=== PATIENT | female | born 1995 | race American Indian/Alaskan Native ===

== ENCOUNTER 2017-06-19 12:46 | Emergency (ER) | payer MEDICAID, OTHER ==
[2017-06-19 14:17] VITALS: BP 127/89
--- NOTE | 2017-06-19 14:19 | EDM.PDOC ---
ED HPI GENERAL MEDICAL PROBLEM - General Chief Complaint: ENT Problem Stated Complaint: SORE THROAT Time Seen by Provider: 06/19/17 14:18 Source of Information: Reports: Patient, RN, RN Notes Reviewed History Limitations: Reports: No Limitations - History of Present Illness INITIAL COMMENTS - FREE TEXT/NARRATIVE: C/O four days duration of sore throat with fevers and chills. Pt developed a bloody nose this morning, but it stopped spontaneously. Denies cough, abd. pain , N/V, or rash. Admits to mild frontal headache on/off. 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 Head Pain Score (Numeric/FACES): 8 - Related Data Allergies Allergy/AdvReac Type Severity Reaction Status Date / Time No Known Allergies Allergy Verified 06/19/17 14:17 Home Meds: Home Meds Ibuprofen [Advil] 400 mg PO ASDIRECTED PRN 06/19/17 [History] Past Medical History Respiratory History: Reports: 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: Psychiatric History: Reports: Anxiety Endocrine/Metabolic History: Reports: Obesity/BMI 30+ Hematologic History: Reports: Anemia - Infectious Disease History Infectious Disease History: Reports: Chicken Pox Social & Family History - Family History Family Medical History: Noncontributory - Tobacco Use Smoking Status *Q: Current Some Day Smoker Years of Tobacco use: 6 Packs/Tins Daily: 0.1 Used Tobacco, but Quit: No Month Tobacco Last Used: december Second Hand Smoke Exposure: Yes - Caffeine Use Caffeine Use: Reports: Soda - Alcohol Use Days Per Week of Alcohol Use: 1 Number of Drinks Per Day: 10 Total Drinks Per Week: 10 - Recreational Drug Use Recreational Drug Use: Yes Drug Use in Last 12 Months: Yes Recreational Drug Type: Reports: Marijuana/Hashish Recreational Drug Use Frequency: Not Used In Over 6 Months - Living Situation & Occupation Living situation: Reports: with Family ED ROS ENT - Review of Systems Review Of Systems: ROS reveals no pertinent complaints other than HPI. ED EXAM, ENT - Physical Exam Exam: See Below Exam Limited By: No Limitations General Appearance: Alert, WD/WN, No Apparent Distress, Obese Eye Exam: Bilateral Eye: Normal Inspection Ears: Normal External Exam, Normal Canal, Hearing Grossly Normal, Normal TMs Nose: Dried Blood (left nare). No: Nasal Discharge Mouth/Throat: Normal Gums, Normal Lips, Normal Teeth, Pharyngeal Erythema, Tonsillar Erythema, Tonsillar Exudates, Tonsillar Swelling (L>R with possible early left peritonsillar abscess). No: Muffled Voice Head: Atraumatic, Normocephalic Neck: Other (shoddy cervical lymphadenopathy, no nuchal rigidity) Respiratory/Chest: No Respiratory Distress, Lungs Clear, Normal Breath Sounds, No Accessory Muscle Use, Chest Non-Tender Cardiovascular: Regular Rate, Rhythm, No Murmur, Tachycardia GI/Abdominal: Normal Bowel Sounds, Soft, Non-Tender, No Distention, Other ( benign obese abdomen). No: Guarding, Rigid, Rebound (Female) Exam: Deferred Rectal (Female) Exam: Deferred Back: Normal Inspection Extremities: Normal Inspection Neurological: Alert, Oriented, CN II-XII Intact, Normal Cognition, Normal Gait, No Motor/Sensory Deficits Psychiatric: Normal Affect, Normal Mood Skin: Warm, Dry, Intact, Normal Color, No Rash Course - Vital Signs Last Recorded V/S: Last Vital Signs Temp 37.7 C 06/19/17 14:11 Pulse 123 H 06/19/17 14:11 Resp 16 06/19/17 14:11 BP 127/89 06/19/17 14:11 Pulse Ox 100 06/19/17 14:11 - Orders/Labs/Meds Orders: Active Orders 24 hr Category Date Time Status Peripheral IV Care [RC] . DIRECTED Care 06/19/17 14:40 Active Peripheral IV Insertion Adult [OM.PC] Stat Oth 06/19/17 14:35 Ordered Labs: Laboratory Tests 06/19/17 06/19/17 06/19/17 Range/Units 14:57 14:57 14:57 WBC 24.8 H (5.0-10.0) 10^3/uL RBC 4.65 (4.2-5.4) 10^6/uL Hgb 10.0 L (12.0-16.0) g/dL Hct 31.9 L (37.0-47.0) % MCV 68.6 L D (80-100) fL MCH 21.5 L (27.0-34.0) pg MCHC 31.3 L (33.0-35.0) g/dL Plt Count 555 H D (150-450) 10^3/uL Neut % (Auto) 86.3 H (42.2-75.2) % Lymph % (Auto) 6.9 L (20.5-50.1) % [place] % (Auto) 6.3 (2-8) % Eos % (Auto) 0.3 L (1.0-3.0) % Baso % (Auto) 0.2 (0.0-1.0) % Sodium 135 (135-145) mmol/L Potassium 4.0 (3.6-5.0) mmol/L Chloride 99 L (101-111) mmol/L Carbon Dioxide 25.0 (21.0-31.0) mmol/L Anion Gap 15.0 BUN 8 (7-18) mg/dL Creatinine 0.5 L (0.6-1.3) mg/dL Est Cr Clr Drug Dosing 163.82 mL/min Estimated GFR (MDRD) > 60 BUN/Creatinine Ratio 16.00 Glucose 115 H (74-105) mg/dL Calcium 8.8 (8.4-10.2) mg/dl Total Bilirubin 0.6 (0.2-1.0) mg/dL AST 31 (10-42) IU/L ALT 53 (10-60) IU/L Alkaline Phosphatase 131 H (42-121) IU/L C-Reactive Protein > 20.0 H (0.0-1.3) mg/dL Total Protein 8.6 H (6.7-8.2) g/dl Albumin 3.6 (3.2-5.5) g/dl Globulin 5.0 Albumin/Globulin Ratio 0.72 Meds: Medications Discontinued Medications Generic Name Dose Route Start Last Admin Trade Name Freq PRN Reason Stop Dose Admin Al Hydroxide/Mg Hydroxide 30 ml 06/19/17 14:40 06/19/17 14:48 Gi Cocktail PO 06/19/17 14:41 30 ml ONETIME ONE Administration Ceftriaxone Sodium 2 gm 06/19/17 14:43 06/19/17 15:54 Rocephin IVPUSH 06/19/17 14:44 Not Given ONETIME ONE Ceftriaxone Sodium 1 gm 06/19/17 14:48 06/19/17 15:09 Rocephin IVPUSH 06/19/17 14:49 1 gm ONETIME ONE Administration Ceftriaxone Sodium 1 gm 06/19/17 14:49 06/19/17 15:11 Rocephin IVPUSH 06/19/17 14:50 1 gm ONETIME ONE Administration Dexamethasone 20 mg 06/19/17 14:40 06/19/17 14:53 Dexamethasone IVPUSH 06/19/17 14:41 20 mg ONETIME ONE Administration Sodium Chloride 1,000 mls @ 999 mls/hr 06/19/17 14:40 06/19/17 14:52 Normal Saline IV 06/19/17 15:40 999 mls/hr .BOLUS ONE Administration Sodium Chloride 10 ml 06/19/17 14:40 06/19/17 14:48 Saline Flush FLUSH 10 ml ASDIRECTED PRN Administration Keep Vein Open - Re-Assessments/Exams Free Text/Narrative Re-Assessment/Exam: Pt reports feeling much improved following tx in ER. Departure - Departure Time of Disposition: 15:52 Disposition: Home, Self-Care 01 Condition: Good Clinical Impression: Tonsillitis, Strep pharyngitis - Discharge Information Instructions: Strep Throat, Tonsillitis Forms: ED Department Discharge Additional Instructions: Rx: Zithromax 500mg Rx: Prednisone 20mg Frequent saltwater gargles until improved. Follow up in clinic in 2 days if not improved. - My Orders Last 24 Hours: My Active Orders 06/19/17 14:35 Peripheral IV Insertion Adult [OM.PC] Stat 06/19/17 14:40 Peripheral IV Care [RC] . DIRECTED - Assessment/Plan Last 24 Hours: My Active Orders 06/19/17 14:35 Peripheral IV Insertion Adult [OM.PC] Stat 06/19/17 14:40 Peripheral IV Care [RC] . DIRECTED
[2017-06-19] MEDS ORDERED: Sodium Chloride 0.9% 10 ML Syringe FLUSH PRN (14:40)
[2017-06-19] MEDS ORDERED: Dexamethasone 4 MG/ML SDV IVPUSH ONE (14:40)
[2017-06-19] MEDS ORDERED: Sodium Chloride 0.9% 1,000 ML IV ONE (14:40)
[2017-06-19] MEDS ORDERED: GI Cocktail Oral Solution 30 ML PO ONE (14:40)
[2017-06-19] MEDS ORDERED: cefTRIAXone 2 GM Vial IVPUSH ONE (14:43)
[2017-06-19] MEDS ORDERED: cefTRIAXone 1 GM Vial IVPUSH ONE ×2 (14:48→14:49)
[2017-06-19 15:26] LABS: CHLORIDE,CL 99 mmol/L (101-111); SODIUM,NA 135 mmol/L (135-145)
== END 2017-06-19 16:05 | disposition home or self-care (01) ==
LOC: DL.ED 12:46
DX: J03.90 Acute tonsillitis, unspecified (principal); F17.210 Nicotine dependence, cigarettes, uncomplicated
CPT/HCPCS: 36415; 80053; 85025; 86140; 87430; 96361; 96374; 96375; 99283; A9270; J0696; J1100; J7030; J7050

== ENCOUNTER 2017-12-16 20:15 | Emergency (ER) | payer OTHER ==
[2017-12-16 20:46] VITALS: BP 141/66
[2017-12-16] MEDS ORDERED: Cephalexin 500 MG Cap PO ONE (21:33)
--- NOTE | 2017-12-16 21:38 | EDM.PDOC ---
ED HPI GENERAL MEDICAL PROBLEM - General Chief Complaint: ENT Problem Stated Complaint: ALERGIC REACTION [id number] Time Seen by Provider: 12/16/17 21:25 Source of Information: Reports: Patient History Limitations: Reports: No Limitations - History of Present Illness INITIAL COMMENTS - FREE TEXT/NARRATIVE: This 21 yo female patient reports to the ED with a 2 day history of a sore throat and difficulties swallowing due to swelling in the back of her throat. Onset Date: 12/14/17 Duration: Constant Location: Reports: Neck Quality: Reports: Ache, Dull Severity: Moderate Improves with: Reports: None Worsens with: Reports: None Associated Symptoms: Reports: No Other Symptoms Throat Pain Score (Numeric/FACES): 6 - Related Data Allergies Allergy/AdvReac Type Severity Reaction Status Date / Time No Known Allergies Allergy Verified 12/16/17 20:53 Home Meds: Home Meds Ibuprofen [Advil] 400 mg PO ASDIRECTED PRN 06/19/17 [History] Past Medical History HEENT History: Reports: None Cardiovascular History: Reports: None Respiratory History: Reports: Asthma Gastrointestinal History: Reports: None Genitourinary History: Reports: None 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 History: Reports: None Neurological History: Reports: None Psychiatric History: Reports: Anxiety Endocrine/Metabolic History: Reports: Obesity/BMI 30+ Hematologic History: Reports: Anemia Immunologic History: Reports: None Oncologic (Cancer) History: Reports: None Dermatologic History: Reports: None - Infectious Disease History Infectious Disease History: Reports: Chicken Pox - Past Surgical History Head Surgeries/Procedures: Reports: None Social & Family History - Family History Family Medical History: Noncontributory - Tobacco Use Smoking Status *Q: Current Some Day Smoker Years of Tobacco use: 9 Packs/Tins Daily: 0.1 - Caffeine Use Caffeine Use: Reports: Tea - Recreational Drug Use Recreational Drug Use: No - Living Situation & Occupation Living situation: Reports: with Family ED ROS ENT - Review of Systems Review Of Systems: ROS reveals no pertinent complaints other than HPI. ED EXAM, ENT - Physical Exam Exam: See Below Exam Limited By: No Limitations General Appearance: Alert, WD/WN, Moderate Distress Eye Exam: Bilateral Eye: EOMI, Normal Inspection, PERRL Ears: Normal External Exam, Normal Canal, Hearing Grossly Normal, Normal TMs Nose: Normal Inspection, Normal Mucousa, No Blood Mouth/Throat: Tonsillar Erythema, Tonsillar Swelling Head: Atraumatic, Normocephalic Neck: Lymphadenopathy (L), Lymphadenopathy (R) Respiratory/Chest: No Respiratory Distress, Lungs Clear, Normal Breath Sounds, No Accessory Muscle Use, Chest Non-Tender Cardiovascular: Normal Peripheral Pulses, Regular Rate, Rhythm, No Edema, No Gallop, No JVD, No Murmur, No Rub GI/Abdominal: Normal Bowel Sounds, Soft, Non-Tender, No Organomegaly, No Distention, No Abnormal Bruit, No Mass (Female) Exam: Deferred Rectal (Female) Exam: Deferred Back: Normal Inspection, Full Range of Motion Extremities: Normal Inspection, Normal Range of Motion, Non-Tender, No Pedal Edema, Normal Capillary Refill Neurological: Alert, Oriented, CN II-XII Intact, Normal Cognition, Normal Gait, Normal Reflexes, No Motor/Sensory Deficits Psychiatric: Normal Affect, Normal Mood Skin: Warm, Dry, Intact, Normal Color, No Rash Lymphatic: No Adenopathy Course - Vital Signs Last Recorded V/S: Last Vital Signs Temp 37.0 C 12/16/17 20:45 Pulse 105 H 12/16/17 20:45 Resp 18 12/16/17 20:45 BP 141/66 H 12/16/17 20:45 Pulse Ox 97 12/16/17 20:45 - Orders/Labs/Meds Orders: Active Orders 24 hr Category Date Time Status CULTURE STREP A CONFIRMATION [] Stat Lab 12/16/17 20:49 Results STREP SCRN A RAPID W CULT CONF [] Stat Lab 12/16/17 20:49 Results Meds: Medications Discontinued Medications Generic Name Dose Route Start Last Admin Trade Name Janet PRN Reason Stop Dose Admin Cephalexin 500 mg 12/16/17 21:33 Keflex PO 12/16/17 21:34 ONETIME ONE Departure - Departure Time of Disposition: 21:36 Disposition: Home, Self-Care 01 Condition: Fair Clinical Impression: Acute bacterial tonsillitis - Discharge Information *PRESCRIPTION DRUG MONITORING PROGRAM REVIEWED*: Not Applicable *COPY OF PRESCRIPTION DRUG MONITORING REPORT IN PATIENT MOJGAN: Not Applicable Instructions: Tonsillitis, [id number] Forms: ED Department Discharge Care Plan Goals: The patient was advised of the examination and lab results. The patient was given an oral dose of Keflex (500 mg) while in the ED. The patient was discharged with Keflex (500 mg) #1 to take in the morning and a script for Keflex (500 mg) #14 to take 1 by mouth 2 times per day for 7 days. If the patient has any additional symptoms or concerns, the patient should follow-up with her primary care facility or return to the emergency department. - My Orders Last 24 Hours: My Active Orders 12/16/17 20:49 CULTURE STREP A CONFIRMATION [RM] Stat STREP SCRN A RAPID W CULT CONF [RM] Stat - Assessment/Plan Last 24 Hours: My Active Orders 12/16/17 20:49 CULTURE STREP A CONFIRMATION [RM] Stat STREP SCRN A RAPID W CULT CONF [RM] Stat
[2017-12-16] MEDS ORDERED: Cephalexin 500 MG Cap ONE (21:43)
== END 2017-12-16 21:45 | disposition home or self-care (01) ==
LOC: DL.ED 20:15
DX: J03.80 Acute tonsillitis due to other specified organisms (principal); B96.89 Other specified bacterial agents as the cause of diseases classified elsewhere; F17.210 Nicotine dependence, cigarettes, uncomplicated
CPT/HCPCS: 87081; 87430; 99283; A9270

== ENCOUNTER 2019-10-28 16:55 | Observation (INO) | payer OTHER, MEDICAID ==
[2019-10-28] MEDS ORDERED: Lactated Ringers 1,000 ML IV SCH (17:30)
[2019-10-28] MEDS ORDERED: Acetaminophen 325 MG Tab PO PRN (19:09)
[2019-10-28] MEDS ORDERED: Tranexamic Acid 1,000 MG in Sodium Chloride 0.9% 100 ML IV PRN (19:09)
--- NOTE | 2019-10-28 19:26 | US ---
PROCEDURE INFORMATION: Exam: US After First Trimester, Transabdominal Exam date and time: 10/28/2019 5:55 PM Age: 23 years old Clinical indication: Lmp or gestational age (in weeks): [id number] twin a, twin b 33wks; Antepartum complications; Other: Fatigue, no care; TECHNIQUE: Imaging protocol: Real-time transabdominal obstetrical ultrasound of the maternal pelvis and a second or third trimester with image documentation. COMPARISON: No relevant prior studies available. FINDINGS: Gestation: Diamniotic dichorionic twin intrauterine gestation. Heart rate: 146 bpm. Presentation: Cephalic. Placenta: Unremarkable. No subchorionic bleed. Placenta is anterior and posterior. Amniotic fluid: Amniotic fluid is normal for gestational age. Index of 17 cm. BIOMETRY: Estimated gestational age: 33 weeks 3 days Estimated due date: December 13, 2019 Estimated weight: 2141 g Biparietal diameter: 8.34 cm Head circumference: 29.8 cm IMPRESSION: 1. Diamniotic dichorionic twin gestation. 2. Estimated gestational age 33 weeks 3 days based on ultrasound. 3. Estimated weight 2141 g. PROCEDURE INFORMATION: Exam: US After First Trimester, Transabdominal. Additional Gestation Exam date and time: 10/28/2019 5:55 PM Age: 23 years old Clinical indication: Lmp or gestational age (in weeks): [id number] twin a, twin b 33wks; Antepartum complications; Other: Fatigue, no care; TECHNIQUE: Imaging protocol: Real-time transabdominal obstetrical ultrasound of the maternal pelvis and a second or third trimester with image documentation. Additional Gestation was evaluated. COMPARISON: No relevant prior studies available. FINDINGS: Gestation: Twin intrauterine gestation. Heart rate: 143 bpm. Presentation: Transverse Placenta: Unremarkable. No subchorionic bleed. Placenta is anterior and posterior. Amniotic fluid: Amniotic fluid is normal for gestational age. Index of 17 cm. BIOMETRY: Estimated gestational age: 33 weeks Estimated due date: December 16, 2019 Estimated weight: 2085 g Biparietal diameter: 8.17 cm Head circumference: 30.3 cm IMPRESSION: 1. Diagram knee on a dichorionic twin gestation. 2. Estimated gestational age 33 weeks. 3. 2085 g. 4. Estimated date of delivery based on ultrasound December 16, 2019.
--- NOTE | 2019-10-28 21:57 | HP ---
PATIENT IDENTIFICATION: Nadia Man is a 23-year-old G3, P2-0-0-2 intrauterine , diagnosed after initial evaluation with twin diamniotic dichorionic suspected intrauterine at 33+ weeks, presenting with swelling. HISTORY OF PRESENT ILLNESS: The patient states over the last 3 days, she has noticed increased swelling in her face, hands, and feet associated with occasional headaches, but nothing severe in nature and only visual changes when rising out of bed that resolved pretty quickly and notes that she had issues with blood pressure with the previous . She notes no contractions, spotting, bleeding, or leaking, and has had no care. Records were called for, reviewed as below, and supplemented by patient history. OB HISTORY: First , spontaneous vaginal delivery, viable male infant, weighing 8 pounds 7 ounces with uterine atony noted after delivery with having to use Methergine to help the uterus firm up and for her bleeding to subside. 08/27/2018, had a male delivered at 39-3/7 weeks with preeclampsia without severe features with limited/insufficient care. Underwent Cytotec x2 as well as Pitocin artificial rupture of membranes, NST. That baby had scores of 8 and 8, weighing 8 pounds 8 ounces (3855 g). Positive THC on urine drug screen was noted as well and she had anemia acute blood loss with hemoglobin dropping down to 8.4 upon discharge. Antepartum labs are pending. ALLERGIES: None. MEDICATION: vitamins. PAST MEDICAL/PAST SURGICAL HISTORY: Remarkable for asthma with last use of albuterol when she was like 7 to 8 years of age. PAST SURGICAL HISTORY: Negative. FAMILY HISTORY: Maternal grandmother and mother have diabetes mellitus and heart disease. No family history of anesthesia, bleeding problems elicited. SOCIAL HISTORY: Lives in [facility] with Don [place] (father of baby) and their 2 children together. The patient states she smokes 2 or 3 cigarettes per day. No alcohol or drug use. REVIEW OF SYSTEMS: Notable for having some diarrhea and vomiting earlier this morning that has resolved. Nobody else sick in the household. Otherwise, review of systems fully reviewed and felt to be noncontributory. OBJECTIVE: Vital Signs: Initial blood pressure 131/70, recheck 160/74, then 150/73, followed by 138/65, respiratory rate is 18, heart rates between 73 and 80. The patient feels afebrile. Appearance: Female appears stated age, acting appropriate. Nontoxic appearance. Somewhat nervous and tearful after discussing twins. HEENT: Head is atraumatic. EOMs intact. PERRLA. No scleral icterus. No sore throat. Mucous membranes dry and tacky. Neck: No obvious masses or tenderness. Lungs: Clear to auscultation bilaterally. No increased work of breathing. Heart: S1, S2. Regular rate and rhythm. Abdomen: Firm, gravid. Gareth's indeterminate. Nontender, nondistended. Bowel sounds positive. No organomegaly, pulsatile masses, or obvious hernias. No rebound, rigidity, or guarding. : Exam done through med student. Speculum exam done. GC, chlamydia, wet prep obtained. Group B strep was obtained as well and vaginal exam with med student and nurse reveals her to be 1 cm, very high, posterior, and thick. These exams were done after ultrasound was done. Ultrasound done reviewed with [facility] revealed twin intrauterine with suspected diamniotic dichorionic with estimated weight of twin A 2141 g and twin B being 2085 g with twin A being in cephalic presentation, twin B being more in a transverse type fashion. Anterior and posterior placenta noted. Extremities: No peripheral edema. Excoriations noted on the lower legs and arms. Deep tendon reflexes 2 to 3 out of 4 bilaterally and symmetric in extremities. Psychiatric: Mood and affect congruent. Judgment intact. Skin: Without any cyanosis, clubbing, or jaundice. 1+ pitting edema to mid tibia bilaterally. No calf pain. FURTHER INVESTIGATIONS: White cell count 10.1, hemoglobin 6.8, platelets 297. PIH panel remarkable for normal BUN, creatinine, uric acid, AST, and ALT, as well as LDH with a urine protein creatinine ratio putting at 450.7, which would coincide with 450.7 mg per 24-hour period. Urine drug screen positive for methamphetamine. COVID is negative. Pending are HIV, gonorrhea, chlamydia, rubella, as well as no care. Order set of labs. NSTs were found to be reactive and reassuring with heart tone baselines around the 130s to 140s range. ASSESSMENT: 1. Twin intrauterine , suspect diamniotic, dichorionic at 33+ weeks. 2. Preeclampsia without severe features. Suspected based on blood pressures and urinalysis finding as above. Recent blood pressure was 136/59 with a heart rate 84. 3. No care. 4. Bilateral swelling. 5. History of vomiting and diarrhea earlier this morning, now resolved. 6. Positive methamphetamine on urine drug screen, 10/28/2019. 7. G3, P2-0-0-2. 8. History of preeclampsia with previous . 9. Anemia of , severe, with hemoglobin of 6.8. We will proceed with blood transfusion of 2 units. I did discuss with the patient risks, benefits, alternatives, and complications of this and received verbal and written consent in regard to this. PLAN: The patient will be admitted to observation. Did discuss with her keeping her at least 24 hours to get her urine protein determined, follow her blood pressures closely, as well as for signs and symptoms of severe preeclampsia, serial labs, and monitoring heart tones intermittently with NSTs. The patient understands and agrees to above treatment plan. We will continue to follow clinically and closely. In addition, we will repeat CBC at 7 o'clock in the morning followed by other labs for severe preeclampsia features and follow clinically and closely. The patient understands and agrees to above treatment plan. [facility] /[id number] ELIA
--- NOTE | 2019-10-28 22:59 | OBOUT ---
DATE: 10/28/2019 Twin B NST. TIME: 1905 to 1920. REASON FOR NST: 1. Intrauterine , twins, 33+ weeks, diamniotic, dichorionic suspected. 2. Preeclampsia with severe features. 3. No care. 4. Positive methamphetamine on urine drug screen, 10/28/2019. 5. Intrauterine , severe. Hemoglobin 6.8. 6. History of preeclampsia of previous . 7. G3, P2-0-0-2. NST INTERPRETATION: During this time period, ultrasound to demarcating twin B does reveal heart tone baseline is approximately 125 and at least two 15 x 15 beats per minute accelerations, making this strip reactive and also reassuring. Tocometer reveals no evidence of contraction. Blood pressure 135/58, recheck 132/59 with heart rates between 74 and 77. ASSESSMENT: 1. Nonstress test, reactive and reassuring of twin B. 2. Tocometer without contractions. PLAN: Please see admit history and physical for further details. [facility] /[id number]
[2019-10-29] MEDS: Ferrous Sulfate 325 MG Tab PO SCH ×2 (07:39→20:10)
[2019-10-29] MEDS ORDERED: Folic Acid 1 MG Tab PO SCH (09:00)
--- NOTE | 2019-10-29 10:04 | OBOUT ---
DATE: 10/28/2019 Twin A NST TIME: 1905 to 1920. REASON FOR NST: 1. Twin intrauterine at 33+ weeks, diamniotic dichorionic-suspected. 2. Preeclampsia without severe features, suspected. 3. Positive methamphetamine on urine drug screen, 10/28/2019. 4. Anemia of that is severe with hemoglobin 6.8 upon admission. 5. History of preeclampsia with previous . 6. G3, P2-0-0-2. NST INTERPRETATION: With twin A demarcated by light colored line. heart tone baseline of approximately 135, and there are at least two 15 x 15 beats per minute accelerations, making this strip reactive. It is also noted to be reassuring. Tocometer reveals no evidence of contractions. Blood pressure 135/58, recheck 132/59, with heart rate between 74 and 77. ASSESSMENT: 1. Nonstress test, reactive and reassuring of twin A. 2. Tocometer without contractions. PLAN: Please see admit history and physical for further details. [facility] /[id number]
--- NOTE | 2019-10-29 10:18 | PN ---
DATE: 10/29/2019 SUBJECTIVE: The patient states she is feeling better. Notes her swelling has decreased in her legs. She denies any headaches, visual changes, or upper abdominal pain. She did receive 2 units of packed red blood cells last night. OBJECTIVE: Vital Signs: Blood pressures through the evening, highest ones were 145/96 with rechecks 126/65, heart rate 75, respiratory rate 18. Lungs: Clear to auscultation bilaterally. Heart: S1, S2. Regular rate and rhythm. Abdomen: Gravid. Gareth's indeterminate. Nontender. Extremities: Mild swelling around the wrist. Lower extremity edema is resolving. INVESTIGATIONS: Labs this morning. White cell count 8, hemoglobin 7.6 compared to predelivery hemoglobin of 6.8, platelets 281. HELLP labs/PIH panel with blood work, no concerns elicited. A 24-hour urine for protein is pending. ASSESSMENT: 1. Intrauterine , 33+ weeks, diamniotic, dichorionic twins, suspected. 2. Preeclampsia without severe features. She has now had 2 elevated blood pressures at least 6 hours apart. She does have the proteinuria and we are waiting on a 24-hour urine for protein to reconfirm this. 3. No care. 4. Positive methamphetamine on urine drug screen, 10/28/2019. 5. Severe anemia of with a hemoglobin of 6.8. Recheck this morning was 7.6. In light of this as well as potential risk of increased bleeding associated with her twins with upcoming delivery in the near future, did discuss with her proceeding with 2 more units of packed red blood cells. She understands, agrees, and wishes to proceed. Written consent has been obtained previously. Verbal consent was obtained this morning. We will continue to follow clinically and closely in regard to this. Recheck CBC tomorrow morning with her preeclampsia labs. 6. History of preeclampsia with previous , putting her at risk with this . 7. G3, P2-0-0-2. PLAN: We will follow clinically and closely as no severe features are noted with the preeclampsia at this point in time. We will do serial labs, follow for NSTs of the twins, and proceed with blood transfusion today. The patient understands and agrees with above treatment plan. [facility] /[id number]
--- NOTE | 2019-10-29 15:39 | OBOUT ---
DATE: 10/28/2019 Twin A NST TIME: 9:51-10:11 REASON FOR NST: 1. Intrauterine , twins, 33+ weeks, diamniotic dichorionic suspected based on ultrasound yesterday. 2. Preeclampsia without severe features. 3. No care. 4. Positive methamphetamine on urine drug screen on 10/28/2019. 5. Anemia of that was severe. Hemoglobin 6.8, transfused 2 units, and that increased to 7.6 region and received another 2 units of packed red blood cells today. 6. History of preeclampsia in previous . 7. G3, P2-0-0-2. NST INTERPRETATION: Twin A who is demarcated by a light colored line. During this time period, heart tone baseline is approximately 125 to 130, and at least two 15 x 15 beats per minute accelerations, making this strip reactive, also noted to be reassuring. Tocometer reveals no evidence of contractions. Blood pressure during this time was 139/78. ASSESSMENT AND PLAN: 1. Nonstress test, reactive and reassuring. 2. Tocometer without contractions. PLAN: Continue with her 4th unit of packed red blood cells. She is receiving 2 today and will be receiving her 4th one soon in total since yesterday, and we will continue to follow clinically and closely. Watch for any signs or symptoms of severe preeclampsia. Repeat labs tomorrow. Please see orders for further details. [facility] /[id number] ELIA
[2019-10-29 17:06] VITALS: BP 148/77; PULSE 66
--- NOTE | 2019-10-29 21:13 | DISCH ---
SUBJECTIVE: Patient denies any headaches, visual changes, or upper abdominal pain. 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 Did discuss this with her and right now we are awaiting labs and consider possibly sending her home after this. OBJECTIVE: Vitals: Today, blood pressures have been ranging from 128 systolic to 159 and diastolic from 67 to 90, heart rate, last heart rate was 66, temperature 96.9, respiratory rate is between 16 and 18. General Appearance: No apparent distress, acting appropriate for age. NSTs done earlier today on the twins felt to be reactive and reassuring. Tocometer reveals no obvious evidence of contractions. No spotting, bleeding, or leaking. CONDITION ON DISCHARGE: Compared to condition on admission guarded. DISCHARGE INSTRUCTIONS: Recommend followup on 10/31/2019, coming to clinic before 11 a.m. Asked that she present there and we will check her and then we will consider doing further evaluation and management and referral to if need be to Maternal- Medicine with nonstress test. DISCHARGE ACTIVITY: Recommend modified bedrest with bathroom privileges. No strenuous activity based on potential for preeclampsia. DIET: As tolerated. I did discuss with her and her male partner importance of followup and ramifications of not doing so as well as concerns with her diagnoses and need to be following closely. ADMISSION DIAGNOSES: 1. Twin interim , 33 plus weeks, diamniotic-dichorionic. 2. Preeclampsia without severe features, suspected. 3. No care. 4. Positive methamphetamine on urine drug screen on 10/28/2019. 5. History of preeclampsia with previous . 6. Anemia of that was severe with hemoglobin of 6.8. 7. G3, P2-0-0-2. DISCHARGE DIAGNOSES: 1. Twin interim , 33 plus weeks, diamniotic-dichorionic. 2. Preeclampsia without severe features, suspected. 3. No care. 4. Positive methamphetamine on urine drug screen on 10/28/2019. 5. History of preeclampsia with previous . 6. Anemia of that was severe with hemoglobin of 6.8. 7. G3, P2-0-0-2. 8. Status post 4 units of packed red blood cells due to severe anemia. Please see above for discharge summary and evaluations. Over half an hour on date of discharge was spent with the patient evaluating, managing, and following closely. I did discuss with her and her male partner again importance of followup and ramifications of not doing so. [facility] /[id number]
--- NOTE | 2019-10-30 02:28 | OBOUT ---
DATE: 10/28/2019 TIME: 9:51 to 10:11 REASON FOR NST: 1. Twin intrauterine at 33+ weeks, diamniotic, dichorionic, suspected. 2. Preeclampsia without severe features. 3. No care. 4. Positive methamphetamine on urine drug screen, 10/28/2019. 5. History of preeclampsia with previous . 6. Anemia of , severe. Hemoglobin 6.8 yesterday. Received 2 units of packed red blood cells with hemoglobin 7.6 range today. Now, receiving her total of fourth unit packed red blood cells today. 7. G3, P2-0-0-2. NST INTERPRETATION: During this time period, heart tone baseline of twin B, which is demarcated by the dark line is approximately 130 to 140 and there are at least two 15 x 15 beats per minute accelerations making this strip reactive. It is also noted to be reassuring. Tocometer reveals no evidence of contraction. Blood pressure 139/78. ASSESSMENT: 1. Nonstress test, reactive and reassuring. 2. Tocometer without contraction. PLAN: We will continue following clinically and closely. Proceed with fourth unit of packed red blood cells. Follow for any signs and symptoms of severe preeclampsia and labs will be drawn in the morning to re-evaluate this as well as effect with transfusion and we will also complete her 24-hour urine for protein later tonight. [facility] /[id number]
== END 2019-10-29 20:15 | disposition home or self-care (01) ==
LOC: DL.OBCHECK 16:55 → DL.OB 19:01
PROVIDERS: ADMIT Family Medicine; ATTEND Family Medicine
DX: O30.043 Twin pregnancy, dichorionic/diamniotic, third trimester (principal); O14.03 Mild to moderate pre-eclampsia, third trimester; O99.333 Smoking (tobacco) complicating pregnancy, third trimester; F17.219 Nicotine dependence, cigarettes, with unspecified nicotine-induced disorders; O99.513 Diseases of the respiratory system complicating pregnancy, third trimester; J45.909 Unspecified asthma, uncomplicated; O99.013 Anemia complicating pregnancy, third trimester; D64.9 Anemia, unspecified; O99.89 Other specified diseases and conditions complicating pregnancy, childbirth and the puerperium; R82.5 Elevated urine levels of drugs, medicaments and biological substances; R22.9 Localized swelling, mass and lump, unspecified; Z20.828 Contact with and (suspected) exposure to other viral communicable diseases; Z3A.33 33 weeks gestation of pregnancy
CPT/HCPCS: 36415; 36430; 76810; 76815; 80305-QW; 80307; 81001; 81003; 82565; 82570; 83615; 84156; 84450; 84460; 84520; 84550; 85025; 85027; 86592; 86593; 86762; 86780; 86803; 86850; 86900; 86901; 86920; 86922; 87081; 87086; 87210; 87340; 87389; 87491; 87591; 96360; A9270-GY; G0378; J7120; P9016; U0002

== ENCOUNTER 2019-11-13 08:07 | Inpatient (IN) | payer MEDICAID, OTHER ==
[2019-11-13] MEDS ORDERED: Misoprostol 400 MCG (4 X 100 MCG TAB) RECTAL PRN (08:39)
[2019-11-13] MEDS ORDERED: Lidocaine 1% 30 ML SDV INJECT PRN (08:39)
[2019-11-13] MEDS ORDERED: CEFAZOLIN IV ONE (08:39)
[2019-11-13] MEDS ORDERED: Carboprost Tromethamine 250 MCG/1 ML Amp IM PRN (08:39)
[2019-11-13] MEDS ORDERED: Methylergonovine 0.2 MG/1 ML Amp IM PRN (08:39)
[2019-11-13] MEDS ORDERED: Lactated Ringers 1,000 ML IV ONE (08:39)
[2019-11-13] MEDS ORDERED: Tranexamic Acid 1,000 MG in Sodium Chloride 0.9% 100 ML IV PRN ×4 (08:39)
[2019-11-13] MEDS ORDERED: Ondansetron 4 MG/2 ML SDV IVPUSH PRN ×2 (08:39→10:12)
[2019-11-13] MEDS ORDERED: Citric Acid/Sodium Citrate Solution 30 ML Cup PO ONE (08:39)
[2019-11-13] MEDS ORDERED: Acetaminophen 325 MG Tab PO PRN (08:39)
[2019-11-13] MEDS ORDERED: Oxytocin/Normal Saline 30 UNIT/500 ML BAG IV SCH (08:45)
[2019-11-13] MEDS ORDERED: Lactated Ringers 1,000 ML IV SCH ×3 (08:45)
[2019-11-13] MEDS ORDERED: Oxytocin/Normal Saline 30 UNIT/500 ML BAG ONE (09:29)
[2019-11-13] MEDS ORDERED: Carboprost Tromethamine 250 MCG/1 ML Amp ONE (09:31)
[2019-11-13] MEDS ORDERED: diphenhydrAMINE 50 MG/ML SDV IVPUSH PRN (10:12)
[2019-11-13] MEDS ORDERED: Naloxone 2 MG/2 ML Syringe IVPUSH PRN ×2 (10:12→10:24)
[2019-11-13] MEDS ORDERED: diphenhydrAMINE 25 MG Tab PO PRN (10:12)
[2019-11-13] MEDS ORDERED: Morphine PF 30 MG/30 ML PCA Vial IV SCH (10:15)
[2019-11-13] MEDS ORDERED: Measles, Mumps & Rubella Vaccine 0.5 ML SDV SUBCUT ONE (10:24)
[2019-11-13] MEDS ORDERED: ePHEDrine 50 MG/ML SDV IVPUSH PRN (10:24)
[2019-11-13] MEDS ORDERED: Diphtheria,Pertussis(Acell),Tetanus Vaccine 0.5 ML SDV IM ONE (10:24)
[2019-11-13] MEDS: Lactated Ringers 1,000 ML IV SCH ×3 (11:00→22:43)
[2019-11-13] MEDS ORDERED: Labetalol 20 MG/4 ML Syringe IVPUSH ONE (12:24)
[2019-11-13] MEDS: cefTRIAXone 1 GM in Sodium Chloride 0.9% 50 ML IV SCH (12:48)
--- NOTE | 2019-11-13 13:05 | US ---
EXAMINATION: OB Follow Up 1st Gest SEX: Female AGE: 23 years CLINICAL HISTORY: Emergency ultrasound exam 23-year-old high risk gravid 3 para 3 (twins) female whose estimated date of delivery was 07 November 2019. NO CARE. Premature rupture of membranes (PROM). Interpretation: 1. Twin baby A "delivered". 2. Remaining twin B in a transverse lie, head left lower quadrant, and a heart rate of 146 bpm. 3. Placenta identified posteriorly, away from the internal cervical os. No placental separation or abruption. 4. Clinical attempt at "twin B repositioning for vaginal delivery" (PROLAPSED CORD clearly demonstrated on cine and ...version discontinued).
--- NOTE | 2019-11-13 13:24 | US ---
EXAMINATION: OB 2 Or 3 Tri Ea Addl Gest SEX: Female AGE: 23 years CLINICAL HISTORY: 23-year-old high risk (no care, twins and PROM) gravid 3 para 2 female whose estimated date of delivery was 07 November 2019. Interpretation: Enlarged uterus with TWIN, live intrauterine gestations. Separate placentas located anteriorly and posteriorly with the leading edge clearly free of the internal cervical os. Twin baby B a and lower uterine segment (heart rate 153 bpm) in a cephalic presentation. Twin baby B upper uterine segment in transverse lie with head on the left has a heart rate of 130 bpm. No demonstrable amniotic fluid volume this patient with history "premature rupture of membranes" (PROM).
[2019-11-13] MEDS: Simethicone 80 MG Tab.Chew PO SCH ×3 (13:56→22:41)
--- NOTE | 2019-11-13 16:30 | PN ---
DATE: 11/13/2019 ADDENDUM: With the , the patient had cord that was in the vaginal area and on the drapes from twin A that was pulled through the operating room field due to placentas being somewhat connected and unable to be . Because of this, Rocephin will be given 1 g IV now and in 24 hours and we will continue to follow clinically and closely. [facility] /[id number]
[2019-11-13] MEDS: Ketorolac 30 MG/ML SDV IVPUSH SCH ×2 (16:38→22:41)
--- NOTE | 2019-11-13 20:15 | HP ---
PATIENT IDENTIFICATION: Nadia Man is a 23-year-old, G3, P2-0-0-2 intrauterine , twins, diamniotic-dichorionic at 35-5/7 weeks by 33-3/7 weeks' ultrasound done on 10/28/2019, who presents with vaginal leaking and contractions. HISTORY OF PRESENT ILLNESS: The patient states vaginal leaking started around 7 a.m. on the date of admission, increasing in frequency and intensity to a point that it is leaking through her clothing and these are preceded by contractions approximately an hour prior to this that are felt in the lower abdomen severe enough that she is breathing through them. Time makes them worse. Nothing seems to make them better. She presented to the hospital via ambulance, and I was called stat into the room for further evaluation and management. Please see delivery note for further details as well. Records called for, reviewed as below, and supplemented by patient history. OB HISTORY: : 1. Spontaneous vaginal delivery of viable male weighing 8 pounds and 7 ounces. Uterine atony noted after delivery with having to use Methergine. 2. 08/27/2018, male delivered at 39-3/7 weeks with preeclampsia without severe features with limited/insufficient care. Underwent Cytotec x2, Pitocin artificial rupture of membranes, NST. The baby had scores of 8 and 8, weighing 8 pounds 8 ounces with positive THC on urine drug screen and anemia of acute blood loss with hemoglobin dropping down to 8.4 upon discharge. ANTEPARTUM LABS: ABO blood type A positive, negative antibody. Rubella nonimmune. RPR nonreactive. Negative hepatitis B surface antigen, hep C, HIV, GC and chlamydia with GBS done on 10/28/2019, being negative with a wet prep negative. She did have a hemoglobin of 6.8 on 10/28/2019, underwent 4 units of packed red blood cells and hemoglobin jumped to 9.5 on 10/29/2019, and upon admission, her hemoglobin is 10.6. ALLERGIES: None. MEDICATIONS: Supposed to be on vitamins. PAST MEDICAL/PAST SURGICAL HISTORY: Remarkable for asthma with last use of albuterol when she was 7 to 8 years of age. PAST SURGICAL HISTORY: Negative. FAMILY HISTORY: Maternal grandmother and mother have diabetes mellitus and heart disease. No family history of anesthesia or bleeding problems listed. SOCIAL HISTORY: Lives in [facility] with Don [place] who is the father of baby and their 2 children together. Patient states she smokes 2 to 3 cigarettes per day. Denies any alcohol and denies drug use in the past but has noted to have positive urine drug screen. REVIEW OF SYSTEMS: Quickly obtained and felt to be contributory for the above. OBJECTIVE: Vital Signs: Blood pressure was followed closely, elevated at 150s over 80s to 90s upon my evaluation, heart rates approximately 100, respiratory rate 16. The patient feels afebrile. General Appearance: Female breathing through contractions, answering questions appropriately in between. HEENT: Head is atraumatic. EOMs intact. PERRLA. No scleral icterus. No sore throat. Mucous membranes are moist. Neck: No obvious tenderness. Lungs: Clear to auscultation bilaterally. No increased work of breathing. Heart: S1, S2. Regular rate and rhythm. Abdomen: Obese. Gravid. Gareth's indeterminate. Nontender, nondistended. Bowel sounds positive. No organomegaly, pulsatile masses, or hernias. No rebound, rigidity, or guarding. Genitourinary: Normal external female genitalia. Normal position and presentation of the urethra. A Pedro was placed with evaluation and vaginal exam reveals her to be nearly complete with vertex seen. Extremities: No peripheral edema. Deep tendon reflexes 1 to 2/4 bilaterally and symmetric in lower extremities. Psychiatric: Mood and affect congruent. Judgment and insight intact. Skin: Without any cyanosis, clubbing, or jaundice. Excoriations noted on the lower legs and arms. INVESTIGATION: Ultrasound done in stat fashion in the room revealed twin A vertex presentation with twin B having unstable lie with transverse type lie. heart tones were detected and documented and felt to be reassuring. Labs done reveal white cell count 7.2, hemoglobin 10.6, platelets 351. HELLP labs remarkable for uric acid minimally elevated at 6.1, LDH elevated at 290, with a urinalysis remarkable for 100 protein, 80 ketones, moderate blood, small bilirubin, 4.0 on urobilinogen, with protein-creatinine ratio being 945.3. Urine drug screen positive for methamphetamine and amphetamine. COVID-19 being negative upon admission. ASSESSMENT/PLAN: 1. Diamniotic-dichorionic twin intrauterine at 35-5/7 weeks by 33- 3/7 weeks' ultrasound on 10/28/2019. 2. Active labor upon admission. 3. Spontaneous rupture of membranes at approximately 7 a.m. on date of admission. 4. Advanced cervical dilation. 5. Initially thought to be GBS unknown but GBS negative as noted above from last visit. 6. Rubella nonimmune. 7. Preeclampsia without severe features. 8. Positive urine drug screen for methamphetamines, amphetamines. 9. G3, P2-0-0-2. 10.History of 4 units of packed red blood cells given on 10/28/2019, for severe anemia. 11.History of preeclampsia with previous . PLAN: OR was notified as soon as the patient presented as it was noted that she had twins with suspected active labor and rupture of membranes. There was a surgery going on at that time and they prepped as soon as they found out and did everything they could at that time to prep the OR. Subsequently, Dr. Sanchez and Dr. Gerber were called into the room. Please see delivery note and summary of events in regard to this for future events as well. I did discuss with the patient potential need for , risks, benefits, alternatives, and complications of including but not limited to infection; bleeding; damage to organs such as bowel, bladder, tubes, uterus, ovaries, and sometimes fetus; rarely needing a blood transfusion or further surgery, and rare maternal or were discussed with her. She understood and agreed and wished to proceed. Verbal and written consents were obtained to proceed to Surgery if need be. There were attempts to deliver in the operating room due to the unstable lie of twin B; however, the patient had the unstoppable urge to push and started pushing. Please see delivery notes for further details thereafter. [facility] /[id number] ELIA
[2019-11-14] MEDS ORDERED: Lactated Ringers 1,000 ML IV SCH (02:45)
[2019-11-14 05:46] LABS: ANION GAP 11.6 mEq/L (7-13); CHLORIDE,CL 105 mmol/L (98-107); SODIUM,NA 137 mmol/L (136-145)
[2019-11-14] MEDS ORDERED: Lactated Ringers 1,000 ML IV ONE (06:04)
[2019-11-14] MEDS: Ketorolac 30 MG/ML SDV IVPUSH SCH (06:05)
[2019-11-14] MEDS: Lactated Ringers 1,000 ML IV SCH (06:07)
[2019-11-14] MEDS ORDERED: Acetaminophen/oxyCODONE 325-5 MG Tab PO PRN (08:30)
[2019-11-14] MEDS: Ferrous Sulfate 325 MG Tab PO SCH (08:36)
[2019-11-14] MEDS: Simethicone 80 MG Tab.Chew PO SCH ×4 (08:36→20:50)
[2019-11-14] MEDS: Prenatal Multivitamin with Calcium/Folic Acid/Iron Tab PO SCH (08:36)
[2019-11-14] MEDS: Docusate Sodium 100 MG Cap PO PRN ×2 (08:36→20:51)
[2019-11-14] MEDS: Acetaminophen/oxyCODONE 325-5 MG Tab PO PRN ×2 (08:39→20:51)
--- NOTE | 2019-11-14 09:17 | OR ---
DATE: 11/13/2019 PREOPERATIVE DIAGNOSES: 1. Diamniotic dichorionic twins intrauterine , 35 and 5/7 weeks by 33 and 3/7 weeks' ultrasound done on 10/28/2019. 2. Active labor upon admission. 3. Spontaneous rupture of membranes approximately at 7 a.m. on date of admission. 4. Advanced cervical dilation. 5. Group B streptococcus negative 10/27-10/28. 6. Rubella nonimmune. 7. Preeclampsia without severe features. 8. Positive urine drug screen for methamphetamines and amphetamines. 9. History of 4 units packed red blood cells given 10/27 to 10/28 for maternal severe anemia. 10.History of preeclampsia with previous . 11.G3, P2-0-0-2. POSTOPERATIVE DIAGNOSES: 1. Diamniotic dichorionic twins intrauterine , 35 and 5/7 weeks by 33 and 3/7 weeks' ultrasound done on 10/28/2019-delivered. 2. Active labor upon admission. 3. Spontaneous rupture of membranes approximately at 7 a.m. on date of admission. 4. Advanced cervical dilation. 5. Group B streptococcus negative 10/27-10/28 6. Rubella nonimmune. 7. Preeclampsia without severe features. 8. Positive urine drug screen for methamphetamines and amphetamines. 9. History of 4 units packed red blood cells given 10/27 to 10/28 for maternal severe anemia. 10.History of preeclampsia with previous . 11.G3, P2-0-0-2. 12.Twin A, vertex presentation, delivered vaginally on the OB floor. 13.Twin B with transverse lie that underwent external cephalic version to vertex presentation after delivery of twin A with suspected prolapse cord noted abutting against the placenta of twin A, with need to proceed to the OR for primary low transverse section. 14.Nuchal cord x1 of twin A, reduced bluntly at delivery. PROCEDURES PERFORMED: Spontaneous vaginal delivery of twin A with subsequent external cephalic version of twin B with subsequent primary low transverse C- section with 2-layer uterine closure for delivery of twin b. FIRST ASSISTANTS: Dr. Sanchez and Dr. Gerber were called to assist with deliveries and babies and due to high risk nature of situation. Dr. Sanchez assisted in ANESTHESIA/ANALGESIA: General when doing the with Nitrox given prior in the second stage of labor. ESTIMATED BLOOD LOSS: 1000 mL. URINE OUTPUT: 100 mL and yellow. IV FLUIDS: 1 L. For operating room times, started skin incision at 9:26, uterine incision at 9:27, delivery 9:28 and stopped at 9:50.. For delivery of twin A, please see nurse's notes for times. FINDINGS: 1. Twin A male, score 9 and 10, weight pending with nuchal cord times 1 reduced bluntly. 2. Twin B female, score 9 and 9, weight pending, delivered via primary low transverse . SUMMARY OF EVENTS: The patient is a 23-year-old, G3, P2-0-0-2 with 1 visit on 10/28/2019, through 10/29/2019, had an ultrasound revealing diamniotic dichorionic twins and also received 4 units of packed red blood cells as severe maternal anemia and had workup for preeclampsia that was very mild in nature with recommendation at that time to follow up within a week and the patient did not. Subsequently, the patient presented to the hospital via ambulance noting that vaginal leaking occurred around 7 a.m. with contractions approximately an hour prior to this waking her from sleep, felt in the lower abdomen and back, severe enough that she is breathing through them. Nothing seems to make them better, time makes it worse, and the vaginal leaking is described is clear in nature and diffuse soaking through clothing. I was called to the room stat upon patient's arrival. OR crew was notified and there was surgery going on at that time. Subsequently, ultrasound was called stat to the room, labs were drawn for preeclampsia. Urine drug screen was done and ultrasound was present and revealed a vertex presentation of twin A. Vaginal exam revealed her to be nearing complete with vertex suspected and clear fluid noted. Twin B was noted on ultrasound to be in more of a transverse lie that was unstable in nature. Subsequently, OR was called to be prepped and Dr. Gerber and Dr. Sanchez were asked to present for help. Discussion ensued with the patient in regard to potential need for based on twin B presentation or other complications. I did discuss with her the risks, benefits, alternatives, complications of including, but not limited to, infection, bleeding, damage to internal organs such as bowel, bladder, tubes, uterus, ovaries, and sometimes fetus rarely needing a blood transfusion or further surgery, and rarer maternal or . She understood and agreed and wished to proceed if needed. Did also discuss with her the potential need for general anesthesia if needed. Subsequently, with Dr. Gerber and Dr. Sanchez in the room, the patient had an unstoppable urge to push and started pushing with contractions. vertex was seen from the vaginal area and subsequently vaginal delivery of twin A ensued. This was in a MERON presentation with a nuchal cord x1, reduced bluntly with delivery. Anterior and posterior shoulders as well as rest of delivered without difficulty. Cord was doubly clamped and cut, and the infant was brought over to Dr. Sanchez's warmer, labeled twin A. Plastic umbilical cord clamp was placed on the cord. Subsequently, external cephalic version was manipulated by Dr. Gerber, and attempts to do an internal cephalic version were unsuccessful due to placenta of twin A occupying the cervical os and vaginal region with inability to get around it. Subsequently, external cephalic version was successful and evaluation was done. heart tones were documented and reassuring, and information technology technician did reveal that placenta from twin A was in the cervical region as well as a suspected prolapse cord with flow going through it with twin A's cord not having any pulsations by exam. At that time, shared decision was made to proceed to the OR as soon as crew is ready and available to proceed with a done under general in stat fashion. As heart tones were reassuring and placenta was abutting this cord and vertex was not applied, vaginal exam was deferred as there may be an increased risk of bleeding with placenta in that area and placenta was providing a cushion. Subsequently, the patient was brought down to the operating room. Prior to this, Pedro was placed. Upon arrival to the operating room, the patient was placed in a supine position with left lateral tilt. General anesthesia was induced. Subsequently, skin incision was made on the lower abdomen in a transverse Pfannenstiel-type fashion, this was carried down to the fascia and scored in the midline. Subcutaneous tissue was raked laterally bluntly and fascial incision was extended laterally with blunt technique and superiorly and inferiorly dissecting from the rectus and pyramidalis muscles bluntly. Rectus muscles were in midline with blunt technique. Abdominal cavity was entered with blunt technique, and incision was extended superiorly and inferiorly with blunt technique. Geo O large retractor was then introduced and used. Lower region of the uterus and vaginal area revealed some swelling. Incision was made on the lower uterine segment approximately 1 cm higher than one would expect to do to this as well as vascular nature of the uterus and vaginal region over this area. Subsequently, a curvilinear incision was made on the lower uterine segment. Uterus was entered sharply. Uterine incision was then extended in transverse fashion using blunt technique. Bulging bag of water was noted, then ruptured with Allis clamps. vertex was then delivered through the incision followed by rest of the infant without difficulty. Mouth and nares were suctioned, cord was doubly clamped, cut, and infant was brought over to the team. Then, approximately 10 mL of cord blood was obtained for labs. At this time, OR tech did reach vaginally and cut the cord proximal to the plastic clamp that was used for twin A, and both placentas and cords were delivered with fundal massage and gentle cord traction thru the abdominal incision. Uterine cavity was then cleared of all blood clots and debris with lap sponge. Melgoza clamps were used to grasp the uterine incision. This was closed in a running locked fashion and tied at the lateral margins with 1-0 Vicryl. Uterine atony was noted and Pitocin was given per protocol, as well as Hemabate IM. Second imbricating layer was then applied with 1-0 Vicryl, tied at the lateral margins. First inspection of the uterine incision revealed hemostasis. The Geo O retractor was then removed and paracolic gutters were then cleared of all blood clots and debris with lap sponge. Anterior cul-de-sac was then irrigated copiously and all blood clots and debris removed. Second and final inspection of the uterine incision and the anterior cul-de-sac revealed hemostasis. Rectus muscles were then reapproximated in the midline with [id number] stitch using 1-0 Vicryl. Subfascial tissues were found to be hemostatic. Fascia was closed in a running fashion and tied at the lateral margins with 0 looped PDS. Subcutaneous tissue was irrigated copiously and hemostasis reassured. The skin was reapproximated with medium kelvin with care being made to avoid hair getting into the incision as a shave was not able to be done due to stat fashion. Aquacel dressing applied. No immediate complications were noted. Sponge, lap, and needle counts were correct. The patient received 3 g of Ancef preoperatively, Pitocin per protocol, as well as Hemabate IM x1 and will receive Toradol at the conclusion of the case for pain control, and may need a REIMBURSEMENT LIAISON as well to be done through CIRC[employer]. Mother and infants are currently stable at the time of dictation. [facility] /[id number] ELIA
--- NOTE | 2019-11-14 10:13 | PN ---
DATE: 11/14/2019 SUBJECTIVE: The patient has had some mild pain. She is undergoing her blood transfusion currently. She is tolerating p.o. has not passed flatus. Pedro is in place. The patient denies any headaches, visual changes, or upper abdominal pain. OBJECTIVE: I's and O's were followed last night very closely, and there were some borderline urine outputs, with one of them being approximately 35 mL in 2 hours. Boluses were given including 2 L of fluid. Labs were done revealing a white cell count of 11.4, hemoglobin 6.3 from predelivery of hemoglobin 10.6, and platelets 262. CMP done remarkable for minimally elevated glucose at 105, calcium at 7.9, alk phos up at 183, total protein 4.9, and albumin 1.3. Urinalysis with small bilirubin, 4 urobilinogen, with specific gravity of 1.025. Once hemoglobin resulted, 2 units of packed red blood cells were called to be given, and she had a type and cross match from prior to surgery, and these units are to be given. Vital Signs: Temp 97.2, heart rate 68, blood pressure 147/81, and respiratory rate is 20. General Appearance: Female, appears her stated age, acting appropriate for age. Nontoxic appearance. Lungs: Clear to auscultation bilaterally. No increased work of breathing. Heart: S1 and S2. Regular rate and rhythm. Genitourinary: Firm uterus -1 below umbilicus. Aquacel dressing dry and intact. Extremities: SCDs and PALMER hose are on. ASSESSMENT: Post and postop day #1, status post spontaneous vaginal delivery of twin A, with primary low transverse section for twin B done under general anesthesia, complicated by preeclampsia without severe features, positive urine drug screen for methamphetamine and amphetamines, as well as uterine atony requiring Pitocin and Hemabate with hemorrhage with an EBL of 1000 mL and now anemia of acute blood loss as evidenced by hemoglobin dropping down to 6.3. PLAN: We will transfuse 2 units of packed red blood cells. Recheck a CBC around 5:00 p.m., and we will continue to follow clinically and closely at this point in time. In terms of her urine output, this morning when she woke up, urine output has increased significantly. Clearing of the urine is noted, and she was treated with 2 L of fluid as well as currently getting her blood transfusion. [facility] /[id number]
[2019-11-14] MEDS: cefTRIAXone 1 GM in Sodium Chloride 0.9% 50 ML IV SCH (12:54)
[2019-11-14] MEDS: Sodium Chloride 0.9% 10 ML Syringe FLUSH PRN ×2 (13:46→13:47)
[2019-11-14] MEDS: Ibuprofen 800 MG Tab PO PRN (17:25)
[2019-11-15] MEDS: Acetaminophen/oxyCODONE 325-5 MG Tab PO PRN ×2 (01:19→08:57)
[2019-11-15] MEDS: Ibuprofen 800 MG Tab PO PRN ×2 (01:20→08:57)
--- NOTE | 2019-11-15 08:11 | PN ---
DATE: 11/15/2019 Postop day #2 as well as day #2, with twin , twin A delivering vaginally and twin B delivering . SUBJECTIVE: The patient is tolerating p.o., was ambulating, urinating, passing flatus, feeling better after her blood transfusion of 2 units of packed red blood cells yesterday. She denies any headaches, visual changes, or upper abdominal pain. OBJECTIVE: Vital Signs: Temperature 97.8, heart rate 78, blood pressure 139/84, respiratory rate 16. Lungs: Clear to auscultation bilaterally. Heart: S1, S2. Regular rate and rhythm. Abdomen: Firm uterus, -2 below umbilicus. Aquacel dressing appears dry and intact. EXTREMITIES: No peripheral edema. No calf pain. Mild excoriations on her legs that were noted earlier. LABORATORY DATA: White cell count 13.7, hemoglobin 8.8, platelets 263. ASSESSMENT AND PLAN: 1. Postop day and day #2, status post spontaneous vaginal delivery followed by primary low transverse for twins. 2. Preeclampsia without severe features. Blood pressure is being followed closely. No symptoms listed now. 3. Anemia, acute blood loss with hemoglobin dropping from predelivery 10.6 to 6.3, now status post 2 units of packed red blood cells. The patient's hemoglobin is increased status post transfusion and patient is doing well. We will continue to follow clinically and closely. Discussed potential for discharge in the near future, and they will need to follow symptoms closely. [facility] /[id number]
[2019-11-15] MEDS: Simethicone 80 MG Tab.Chew PO SCH (08:56)
[2019-11-15] MEDS: Ferrous Sulfate 325 MG Tab PO SCH (08:57)
[2019-11-15] MEDS: Prenatal Multivitamin with Calcium/Folic Acid/Iron Tab PO SCH (08:57)
[2019-11-15] MEDS: Docusate Sodium 100 MG Cap PO PRN (08:57)
[2019-11-15 09:47] VITALS: BP 119/66; PULSE 79
[2019-11-15] MEDS ORDERED: Oxytocin 10 Units/1 ML SDV IV ONE (10:06)
[2019-11-15] MEDS ORDERED: Ketorolac 30 MG/ML SDV IVPUSH ONE (10:06)
[2019-11-15] MEDS ORDERED: fentaNYL 100 MCG/2 ML SDV IV ONE (10:06)
[2019-11-15] MEDS ORDERED: Propofol 200 MG/20 ML SDV IV ONE (10:06)
[2019-11-15] MEDS ORDERED: Lactated Ringers 1,000 ML IV ONE (10:06)
[2019-11-15] MEDS ORDERED: Succinylcholine 200 MG/10 ML MDV IV ONE (10:06)
[2019-11-15] MEDS ORDERED: Carboprost Tromethamine 250 MCG/1 ML Amp IM ONE (10:06)
--- NOTE | 2019-11-15 13:13 | DISCH ---
ADMITTING DIAGNOSES: 1. Twin intrauterine , diamniotic dichorionic 35-5/7 weeks by 33-3/7- week ultrasound on 10/28/2019. 2. Active labor upon admission. 3. Spontaneous rupture of membranes approximately 7 a.m. on date of admission. 4. Advanced cervical dilation. 5. Group B Streptococcus negative from admission 10/27 to 10/28. 6. Rubella nonimmune. 7. Preeclampsia without severe features. 8. Positive urine drug screen for methamphetamine, amphetamine. 9. History of 4 units packed red blood cell transfusion 10/27 to 10/28 due to severe anemia. 10.History of preeclampsia in previous . 11.G3, P2-0-0-2. DISCHARGE DIAGNOSES: 1. Twin intrauterine , diamniotic dichorionic 35-5/7 weeks by 33-3/7- week ultrasound on 10/28/2019. Twin A delivered spontaneous vaginal delivery in vertex presentation. Twin B delivered via primary low- transverse with 2-layer uterine closure due to prolapsed cord. 2. Active labor upon admission. 3. Spontaneous rupture of membranes approximately 7 a.m. on date of admission. 4. Advanced cervical dilation. 5. Group B Streptococcus negative from admission 10/27 to 10/28. 6. Rubella nonimmune. 7. Preeclampsia without severe features. 8. Positive urine drug screen for methamphetamine, amphetamine. 9. History of 4 units packed red blood cell transfusion 10/27 to 10/28 due to severe anemia. 10.History of preeclampsia in previous . 11.G3, P2-0-0-2. 12.Suspected prolapsed cord of twin B after external cephalic version. 13.Unstable lie of twin B noted prior to delivery of twin A. 14.Nuchal cord x1, reduced bluntly with twin A with delivery. 15.Uterine atony requiring Pitocin per protocol and Hemabate IM in the OR with . 16. hemorrhage with an EBL of 1000 mL. 17.Anemia, acute blood loss, hemoglobin dropping from 10.6 to 6.3, now status post 2 units of packed red blood cells transfusion with last hemoglobin 8.8 prior to discharge. PROCEDURE PERFORMED: Spontaneous vaginal delivery of twin A, with subsequent external cephalic version of twin B that was an unstable lie, with subsequent primary low-transverse with 2-layer uterine closure for delivery of twin B due to prolapsed cord. was done under general anesthesia. HISTORY OF PRESENT ILLNESS: Please see H and P. SUMMARY OF HOSPITAL COURSE: The patient was admitted on the above date with the above diagnoses. Attempted to get to the operating room for delivery to be done in a controlled situation there; however, there was a surgery going on. OR was notified as soon as the patient arrived and the need for OR was noted. They prepped and draped as fast they could. Subsequently, the patient had an unstoppable urge to push. Twin A was delivered vaginally. Twin B which was an unstable lie verified by ultrasound was successfully externally cephalic verted by Dr. Gerber with attempts to do internal cephalic version, but this was blocked by placenta of twin A. Subsequently with ultrasound revealing vertex presentation of twin B, there was noted to be a prolapsed cord and the patient was brought to the operating room in a stat fashion where general anesthetic was induced and she underwent a primary low-transverse with 2-layer uterine closure for delivery of twin B. This yielded twin A male, score 8 and 9, weighing 2545 g (5 pounds 10 ounces) and twin B delivered via primary low- transverse with 2-layer uterine closure, being a female with score of 9 and 9, weighing 2445 g. 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 IV fluid boluses were given and urine output increased as well as 2 units of packed red blood cells were given due to hemoglobin dropping down to 6.3 compared to predelivery hemoglobin of 10.6. After blood transfusions were done and night prior to discharge hemoglobin was 8.8 and stable, and patient was asymptomatic. Please see progress notes for further details. DISCHARGE EVALUATION: Please see previous progress notes done earlier today with evaluation of the patient as well. She subsequently after that evaluation decided she needs to go home to [facility] to get ready for her twin babies and requested discharge and was going to leave regardless, therefore she is being discharged. The patient denies any headaches, visual changes, or upper abdominal pain. Her pressures came back to more within a normal range as well. CONDITION ON DISCHARGE COMPARED TO CONDITION ON ADMISSION: Improved. DISCHARGE INSTRUCTIONS: Diet as tolerated. Activity: No lifting more than 20 pounds. No sit-ups, straining, and pelvic rest for the next 6 weeks with immediate return of fertility discussed with patient. Reasons to go to the emergency room was discussed with the patient in detail including but not limited to temperature greater than 100.4, foul-smelling discharge, red or tender breasts, or increased vaginal bleeding or increasing pain, drainage, or redness around the incision, or headaches, visual changes, or upper abdominal pain. DISCHARGE MEDICATIONS: 1. [id number] Tylenol or ibuprofen for pain. 2. Iron sulfate 325 b.i.d. x6 weeks, dispense q.s., no refills. 3. Colace 100 mg b.i.d. p.r.n. #60, no refills. 4. Percocet 5/325, 1 to 2 q.6 hours p.r.n., #10, no refills. FOLLOWUP: Follow up on November 17 for staple removal. I did discuss the importance of followup and ramifications of not doing so as well as reason to return or go to the emergency room as above. She is being discharged at her request at this point in time. She is felt to be medically stable as blood pressures are normalized, no signs or symptoms of severe preeclampsia. Her hemoglobin is more stable with hemoglobin 8.8 status post 2 units of packed red blood cells, and she denies any symptoms and will leave regardless. We will proceed as above. Over 1/2 hour has spent in discharge evaluation and management today. [facility] /[id number]
== END 2019-11-15 10:07 | disposition home or self-care (01) | DRG 787 ==
LOC: DL.OBCHECK 08:07 → DL.OB 08:44 → UNDOADMIN 08:44 → DL.OB 09:03
PROVIDERS: ADMIT Family Medicine; ATTEND Family Medicine
PROC: 10E0XZZ Delivery of Products of Conception, External Approach (ICD-10-PCS; principal; 2019-11-13)
PROC: 10D00Z1 Extraction of Products of Conception, Low, Open Approach (ICD-10-PCS; 2019-11-13)
PROC: 30233N1 Transfusion of Nonautologous Red Blood Cells into Peripheral Vein, Percutaneous Approach (ICD-10-PCS; 2019-11-14)
DX: O69.0XX2 Labor and delivery complicated by prolapse of cord, fetus 2 (principal); O99.324 Drug use complicating childbirth; D62 Acute posthemorrhagic anemia; O72.1 Other immediate postpartum hemorrhage; O30.043 Twin pregnancy, dichorionic/diamniotic, third trimester; Z3A.35 35 weeks gestation of pregnancy; Z37.2 Twins, both liveborn; O14.04 Mild to moderate pre-eclampsia, complicating childbirth; F15.90 Other stimulant use, unspecified, uncomplicated; O99.02 Anemia complicating childbirth; O69.81X1 Labor and delivery complicated by cord around neck, without compression, fetus 1; Z11.59 Encounter for screening for other viral diseases
CPT/HCPCS: 01961; 36415; 36430; 51702; 59409; 76810; 76815; 76816; 80053; 80305-QW; 81001; 81003; 82565; 82570; 83615; 84156; 84450; 84460; 84520; 84550; 85025; 85027; 86850; 86900; 86901; 86920; 86922; 90471; 90707; 90715; A9270-GY; J0690; J0696; J1885; J2274; J2590; J3490; J7050; J7120; P9016; U0002

== ENCOUNTER 2021-06-09 11:34 | Inpatient (IN) | payer MEDICAID ==
[~2021-06-09 11:34] MED LIST: Lactated Ringers 1,000 ML IV ONE; Sodium Chloride 0.9% 10 ML Syringe FLUSH PRN
[2021-06-09] MEDS ORDERED: Oxytocin/Normal Saline 0 UNIT/0 ML BAG ONE (11:47)
[2021-06-09] MEDS ORDERED: Carboprost Tromethamine 250 MCG/1 ML Amp ONE (11:56)
[2021-06-09] MEDS ORDERED: Misoprostol 400 MCG (4 X 100 MCG TAB) ONE (11:56)
[2021-06-09] MEDS ORDERED: Methylergonovine 0.2 MG/1 ML Amp ONE (11:56)
[2021-06-09] MEDS ORDERED: Tranexamic Acid 1,000 MG in Sodium Chloride 0.9% 100 ML IV PRN (12:20)
[2021-06-09] MEDS ORDERED: Benzocaine/Menthol 20%-0.5% Spray 78 GM Cannister TOP PRN (12:20)
[2021-06-09] MEDS ORDERED: Acetaminophen 325 MG Tab PO PRN (12:20)
[2021-06-09] MEDS ORDERED: Simethicone 80 MG Tab.Chew PO PRN (12:20)
[2021-06-09] MEDS ORDERED: Misoprostol 400 MCG (4 X 100 MCG TAB) RECTAL PRN (12:20)
[2021-06-09] MEDS ORDERED: Carboprost Tromethamine 250 MCG/1 ML Amp IM PRN (12:20)
[2021-06-09 12:49] LABS: ANION GAP 11.7 mEq/L (7-13); CHLORIDE,CL 101 mmol/L (98-107); SODIUM,NA 134 mmol/L (136-145)
[2021-06-09] MEDS ORDERED: Oxytocin/Normal Saline 30 UNIT/500 ML BAG IV SCH (13:15)
[2021-06-09 13:20] LABS: AMPHETAMINES,URINE POSITIVE (NEGATIVE); BARBITURATES,URINE NEGATIVE (NEGATIVE); BENZODIAZEPINE,URINE NEGATIVE (NEGATIVE); MDMA (ECSTASY), URINE POSITIVE (NEGATIVE); METHADONE,URINE NEGATIVE (NEGATIVE); METHAMPHETAMINES,URINE POSITIVE (NEGATIVE); OPIATES,URINE NEGATIVE (NEGATIVE); OXYCODONE,URINE NEGATIVE (NEGATIVE); PHENCYCLIDINE,URINE NEGATIVE (NEGATIVE); TCA,URINE NEGATIVE (NEGATIVE)
[2021-06-09] MEDS: Labetalol 100 MG Tab PO SCH ×2 (13:41→21:08)
[2021-06-09] MEDS: Docusate Sodium 100 MG Cap PO PRN ×2 (13:46→21:09)
[2021-06-09] MEDS: Ibuprofen 800 MG Tab PO PRN (21:18)
[2021-06-10] MEDS ORDERED: Measles, Mumps & Rubella Vaccine 0.5 ML SDV SUBCUT ONE (07:18)
[2021-06-10] MEDS ORDERED: Ferrous Sulfate 325 MG Tab PO SCH (08:00)
[2021-06-10] MEDS: Docusate Sodium 100 MG Cap PO PRN (08:55)
[2021-06-10] MEDS: Ibuprofen 800 MG Tab PO PRN (08:55)
[2021-06-10] MEDS: Labetalol 100 MG Tab PO SCH (08:55)
[2021-06-10 09:00] VITALS: BP 134/71; PULSE 70
[2021-06-10] MEDS ORDERED: Prenatal Multivitamin with Calcium/Folic Acid/Iron Tab PO SCH (09:00)
[2021-06-10 12:47] LABS: C.TRACHOMATIS BY TMA Negative (Negative); N.GONORRHOEAE BY TMA Negative (Negative)
== END 2021-06-10 12:55 | disposition home or self-care (01) | DRG 807 ==
LOC: DL.OBCHECK 11:34 → DL.OB 11:56 → OBSVTOIN 11:56
PROVIDERS: ADMIT Family Medicine; ATTEND Family Medicine
PROC: 10E0XZZ Delivery of Products of Conception, External Approach (ICD-10-PCS; principal; 2021-06-09)
DX: O77.0 Labor and delivery complicated by meconium in amniotic fluid (principal); Z37.0 Single live birth; Z3A.34 34 weeks gestation of pregnancy; O69.81X0 Labor and delivery complicated by cord around neck, without compression, not applicable or unspecified; O99.214 Obesity complicating childbirth; E66.9 Obesity, unspecified; Z20.822 Contact with and (suspected) exposure to COVID-19
CPT/HCPCS: 36415; 59409; 76815; 80053; 80305-QW; 80307; 81001; 82570; 84156; 85027; 86592; 86762; 86803; 86850; 86900; 86901; 87081; 87210; 87340; 87389; 87491; 87591; 90471; 90707; A9270-GY; J2590; J7120; U0002

== ENCOUNTER 2022-10-20 07:29 | Inpatient (IN) | payer MEDICAID, OTHER ==
[2022-10-20] MEDS: Lactated Ringers 1,000 ML IV SCH ×3 (08:00→18:12)
[2022-10-20 08:04] LABS: HEMATOCRIT 34.6 % (37.0-47.0); MEAN CORPUSCULAR HEMOGLOBIN 25.3 pg (27.0-34.0); MEAN CORPUSCULAR HGB CONC 31.8 g/dL (33.0-35.0); MEAN CORPUSCULAR VOLUME 79.5 fL (80-100); RED BLOOD CELL COUNT 4.35 10^6/uL (4.2-5.4)
[2022-10-20] MEDS ORDERED: ceFAZolin 2 GM Vial IVPUSH ONE (08:09)
[2022-10-20] MEDS ORDERED: Citric Acid/Sodium Citrate Solution 30 ML Cup PO ONE ×2 (08:09→08:15)
[2022-10-20] MEDS ORDERED: Tranexamic Acid 1,000 MG in Sodium Chloride 0.9% 100 ML IV PRN (08:10)
[2022-10-20] MEDS ORDERED: diphenhydrAMINE 50 MG/ML SDV IVPUSH PRN (08:10)
[2022-10-20] MEDS ORDERED: Acetaminophen 325 MG Tab PO PRN (08:10)
[2022-10-20] MEDS ORDERED: Acetaminophen/oxyCODONE 325-5 MG Tab PO PRN (08:10)
[2022-10-20] MEDS ORDERED: Methylergonovine 0.2 MG/1 ML Amp IM PRN (08:10)
[2022-10-20] MEDS ORDERED: Docusate Sodium 100 MG Cap PO PRN (08:10)
[2022-10-20] MEDS ORDERED: Naloxone 2 MG/2 ML Syringe IVPUSH PRN (08:10)
[2022-10-20] MEDS ORDERED: Ondansetron 4 MG/2 ML SDV IVPUSH PRN (08:10)
[2022-10-20] MEDS ORDERED: Carboprost Tromethamine 250 MCG/1 ML Amp IM PRN (08:10)
[2022-10-20] MEDS ORDERED: ePHEDrine 50 MG/ML SDV IVPUSH PRN (08:10)
[2022-10-20] MEDS ORDERED: Misoprostol 400 MCG (4 X 100 MCG TAB) RECTAL PRN (08:10)
[2022-10-20] MEDS ORDERED: Oxytocin/Normal Saline 60 UNIT/1,000 ML BAG ONE (08:14)
[2022-10-20] MEDS ORDERED: ceFAZolin 2 GM Vial ONE (08:14)
[2022-10-20] MEDS ORDERED: Citric Acid/Sodium Citrate Solution 30 ML Cup ONE (08:15)
[2022-10-20 08:31] LABS: ALANINE AMINOTRANSFERASE,ALT 26 U/L (14-59); ASPARTATE AMNIOTRANSFERASE,AST 20 U/L (15-37); BLOOD UREA NITROGEN,BUN 7 mg/dL (7-18); CREATININE 0.58 mg/dL (0.55-1.02); LACTATE DEHYDROGENASE,LDH 179 U/L (81-234); URIC ACID 6.4 mg/dL (2.6-6.0)
[2022-10-20 08:40] LABS: ESTIMATED GFR 126 mL/min (>=60)
[2022-10-20 08:49] LABS: APPEARANCE,URINE SLIGHTLY CLOUDY (CLEAR); BILIRUBIN,URINE SMALL (NEGATIVE); COLOR,URINE YELLOW (YELLOW); GLUCOSE,URINE NEGATIVE (NEGATIVE); KETONES,URINE 80 (NEGATIVE); LEUKOCYTE ESTERASE,URINE NEGATIVE (NEGATIVE); NITRITE,URINE NEGATIVE (NEGATIVE); OCCULT BLOOD,URINE SMALL (NEGATIVE); PH,URINE 6.5 (5.0-9.0); PROTEIN,URINE TRACE (NEGATIVE)
[2022-10-20 08:56] LABS: AMPHETAMINES,URINE POSITIVE (NEGATIVE); BARBITURATES,URINE NEGATIVE (NEGATIVE); BENZODIAZEPINE,URINE NEGATIVE (NEGATIVE); MDMA (ECSTASY), URINE NEGATIVE (NEGATIVE); METHADONE,URINE NEGATIVE (NEGATIVE); METHAMPHETAMINES,URINE POSITIVE (NEGATIVE); OPIATES,URINE NEGATIVE (NEGATIVE); OXYCODONE,URINE NEGATIVE (NEGATIVE); PHENCYCLIDINE,URINE NEGATIVE (NEGATIVE); TCA,URINE NEGATIVE (NEGATIVE)
[2022-10-20] MEDS ORDERED: Oxytocin/Normal Saline 30 UNIT/500 ML BAG IV SCH (09:00)
[2022-10-20 09:01] LABS: BACTERIA,URINE FEW /HPF (0-FEW/HPF); EPITHELIAL CELLS,URINE MANY /HPF (NOT SEEN); MUCUS,URINE MODERATE /LPF (NOT SEEN); RBC,URINE 0-5 /HPF (0-5); WBC,URINE 0-5 /HPF (0-5/HPF)
[2022-10-20 09:03] LABS: CREATININE,URINE RAND 177.28 mg/dL (No establ ref range); PROTEIN,URINE RANDOM 34.4 mg/dL (0.0-11.9)
[2022-10-20] MEDS ORDERED: Ketorolac 30 MG/ML SDV IVPUSH ONE (10:45)
[2022-10-20] MEDS: Simethicone 80 MG Tab.Chew PO SCH ×4 (11:01→21:19)
[2022-10-20] MEDS: Prenatal Multivitamin with Calcium/Folic Acid/Iron Tab PO SCH (11:01)
[2022-10-20] MEDS: Ketorolac 30 MG/ML SDV IVPUSH SCH ×2 (16:25→22:12)
[2022-10-21] MEDS: Ketorolac 30 MG/ML SDV IVPUSH SCH (05:05)
[2022-10-21 06:18] LABS: HEMOGLOBIN 8.2 g/dL (12.0-16.0); MEAN CORPUSCULAR HEMOGLOBIN 25.5 pg (27.0-34.0); MEAN CORPUSCULAR HGB CONC 31.5 g/dL (33.0-35.0); RED BLOOD CELL COUNT 3.21 10^6/uL (4.2-5.4); WHITE BLOOD CELL COUNT,WBC 11.8 10^3/uL (5.0-10.0)
[2022-10-21] MEDS: Acetaminophen/oxyCODONE 325-5 MG Tab PO PRN ×2 (07:15→13:10)
[2022-10-21] MEDS: Simethicone 80 MG Tab.Chew PO SCH ×2 (08:41→13:11)
[2022-10-21] MEDS: Prenatal Multivitamin with Calcium/Folic Acid/Iron Tab PO SCH (08:41)
[2022-10-21 11:46] LABS: C.TRACHOMATIS BY TMA Negative (Negative); N.GONORRHOEAE BY TMA Negative (Negative); SOURCE URINE
[2022-10-21] MEDS ORDERED: Ibuprofen 800 MG Tab PO PRN (12:00)
[2022-10-21 13:03] VITALS: BP 137/87; PULSE 75
[2022-10-21] MEDS ORDERED: OXYTOCIN IV ONE (13:52)
[2022-10-21] MEDS ORDERED: SODIUM CHLORIDE 0.9% IV ONE (13:52)
[2022-10-23 12:41] LABS: HBSAG SCREEN Negative (Negative)
== END 2022-10-21 13:53 | disposition left against medical advice (07) | DRG 787 ==
LOC: DL.OBCHECK 07:29 → UNDOADMIN 07:59 → DL.OB 07:59 → UNDODISIN 10-21 13:53
PROVIDERS: ADMIT Family Medicine; ATTEND Family Medicine
PROC: 10D00Z1 Extraction of Products of Conception, Low, Open Approach (ICD-10-PCS; principal; 2022-10-20)
DX: O34.33 Maternal care for cervical incompetence, third trimester (principal); O99.324 Drug use complicating childbirth; O13.4 Gestational [pregnancy-induced] hypertension without significant proteinuria, complicating childbirth; O34.211 Maternal care for low transverse scar from previous cesarean delivery; F15.90 Other stimulant use, unspecified, uncomplicated; O99.314 Alcohol use complicating childbirth; O69.81X0 Labor and delivery complicated by cord around neck, without compression, not applicable or unspecified; F10.90 Alcohol use, unspecified, uncomplicated; O77.0 Labor and delivery complicated by meconium in amniotic fluid; O99.334 Smoking (tobacco) complicating childbirth; F12.90 Cannabis use, unspecified, uncomplicated; F17.210 Nicotine dependence, cigarettes, uncomplicated; Z3A.38 38 weeks gestation of pregnancy; Z37.0 Single live birth
CPT/HCPCS: 36415; 59025; 59409; 76815; 80305-QW; 80307; 81001; 82565; 82570; 83615; 84156; 84450; 84460; 84520; 84550; 85027; 86592; 86762; 86803; 86850; 86900; 86901; 87340; 87389; 87491; 87591; 94010; A9270-GY; J0690; J1885; J2590; J7120

== ENCOUNTER 2024-04-27 21:38 | Inpatient (IN) | payer MEDICAID ==
[2024-04-27] MEDS: Oxytocin/Normal Saline 30 UNIT/500 ML BAG IV SCH (21:51)
[2024-04-27] MEDS: Lactated Ringers 1,000 ML IV SCH (21:55)
[2024-04-27] MEDS ORDERED: Methylergonovine 0.2 MG Tab PO PRN (22:03)
[2024-04-27] MEDS ORDERED: Carboprost Tromethamine 250 MCG/1 ML Amp IM PRN (22:03)
[2024-04-27] MEDS ORDERED: Benzocaine/Menthol 20%-0.5% Spray 78 GM Cannister TOP PRN (22:03)
[2024-04-27] MEDS ORDERED: Acetaminophen 325 MG Tab PO PRN (22:03)
[2024-04-27] MEDS ORDERED: Sodium Chloride 0.9% 10 ML Syringe FLUSH PRN (22:03)
[2024-04-27] MEDS ORDERED: Witch Hazel Medicated Pads 100/Jar TOP PRN (22:03)
[2024-04-27] MEDS ORDERED: Misoprostol 100 MCG Tab RECTAL PRN (22:03)
[2024-04-27] MEDS ORDERED: Oxytocin 10 Units/1 ML SDV IM PRN (22:03)
[2024-04-27] MEDS ORDERED: Simethicone 80 MG Tab.Chew PO PRN (22:03)
[2024-04-27 22:11] LABS: HEMATOCRIT 32.6 % (37.0-47.0); HEMOGLOBIN 10.2 g/dL (12.0-16.0); MEAN CORPUSCULAR HEMOGLOBIN 25.6 pg (27.0-34.0); MEAN CORPUSCULAR HGB CONC 31.3 g/dL (33.0-35.0); MEAN CORPUSCULAR VOLUME 81.9 fL (80-100); RED BLOOD CELL COUNT 3.98 10^6/uL (4.2-5.4); WHITE BLOOD CELL COUNT,WBC 12.9 10^3/uL (5.0-10.0)
[2024-04-27 22:34] LABS: URIC ACID 5.5 mg/dL (2.6-6.0)
[2024-04-27] MEDS: Tranexamic Acid 1,000 MG in Sodium Chloride 0.9% 100 ML IV PRN (23:43)
[2024-04-28 02:56] LABS: APPEARANCE,URINE CLOUDY (CLEAR); BILIRUBIN,URINE NEGATIVE (NEGATIVE); COLOR,URINE RED (YELLOW); GLUCOSE,URINE NEGATIVE (NEGATIVE); KETONES,URINE TRACE (NEGATIVE); LEUKOCYTE ESTERASE,URINE TRACE (NEGATIVE); NITRITE,URINE NEGATIVE (NEGATIVE); OCCULT BLOOD,URINE LARGE (NEGATIVE); PROTEIN,URINE >=300 (NEGATIVE); UROBILINOGEN,URINE 0.2 mg/dL (0.2-1.0)
[2024-04-28 03:00] LABS: AMPHETAMINES,URINE POSITIVE (NEGATIVE); BARBITURATES,URINE NEGATIVE (NEGATIVE); BENZODIAZEPINE,URINE NEGATIVE (NEGATIVE); MDMA (ECSTASY), URINE NEGATIVE (NEGATIVE); METHADONE,URINE NEGATIVE (NEGATIVE); METHAMPHETAMINES,URINE POSITIVE (NEGATIVE); OPIATES,URINE NEGATIVE (NEGATIVE); OXYCODONE,URINE NEGATIVE (NEGATIVE); PHENCYCLIDINE,URINE NEGATIVE (NEGATIVE); TCA,URINE NEGATIVE (NEGATIVE)
[2024-04-28 03:01] LABS: AMORPHOUS SEDIMENT,URINE RARE /HPF (NOT SEEN); BACTERIA,URINE RARE /HPF (0-FEW/HPF); EPITHELIAL CELLS,URINE NOT SEEN /HPF (NOT SEEN); MUCUS,URINE RARE /LPF (NOT SEEN); RBC,URINE PACKED /HPF (0-5)
[2024-04-28] MEDS: Ibuprofen 800 MG Tab PO SCH (03:29)
[2024-04-28 06:18] LABS: HEMATOCRIT 27.3 % (37.0-47.0); HEMOGLOBIN 8.6 g/dL (12.0-16.0); MEAN CORPUSCULAR HEMOGLOBIN 26.1 pg (27.0-34.0); MEAN CORPUSCULAR HGB CONC 31.5 g/dL (33.0-35.0); MEAN CORPUSCULAR VOLUME 82.7 fL (80-100); RED BLOOD CELL COUNT 3.3 10^6/uL (4.2-5.4); WHITE BLOOD CELL COUNT,WBC 17.3 10^3/uL (5.0-10.0)
[2024-04-28] MEDS: Docusate Sodium 100 MG Cap PO PRN (08:41)
[2024-04-28] MEDS: Prenatal Multivitamin with Calcium/Folic Acid/Iron Tab PO SCH (08:41)
[2024-04-28] MEDS: Ferrous Sulfate 325 MG Tab PO SCH (08:42)
[2024-04-28 11:41] VITALS: BP 138/76; PULSE 78
[2024-04-28] MEDS ORDERED: Ibuprofen 800 MG Tab PO SCH (12:00)
[2024-04-30 11:47] LABS: C.TRACHOMATIS BY TMA Negative (Negative); N.GONORRHOEAE BY TMA Negative (Negative); SOURCE URINE
[2024-05-01 15:47] LABS: HEP B SURFACE AG Negative (Negative)
[2024-05-01 19:41] LABS: HCV AB BY CIA INTERP Negative (Negative); HEPC AB BY CIA INDEX 0.07 IV
== END 2024-04-28 11:31 | disposition home or self-care (01) | DRG 806 ==
LOC: DL.OBCHECK 21:38 → DL.OB 21:39 → UNDOADMOB 21:42 → DL.OB 21:42 → OBSVTOIN 21:42 → DL.OB 22:03 → UNDOADMOB 22:03 → OBSVTOIN 22:03 → INTOOBSV 22:03
PROVIDERS: ADMIT Family Medicine; ATTEND Student in an Organized Health Care Education/Training Program
PROC: 10E0XZZ Delivery of Products of Conception, External Approach (ICD-10-PCS; principal; 2024-04-27)
DX: O34.211 Maternal care for low transverse scar from previous cesarean delivery (principal); O99.324 Drug use complicating childbirth; Z37.0 Single live birth; O99.334 Smoking (tobacco) complicating childbirth; F17.290 Nicotine dependence, other tobacco product, uncomplicated; O42.02 Full-term premature rupture of membranes, onset of labor within 24 hours of rupture; O99.214 Obesity complicating childbirth; F15.90 Other stimulant use, unspecified, uncomplicated; Z3A.00 Weeks of gestation of pregnancy not specified
CPT/HCPCS: 36415; 59409; 80305-QW; 81001; 83615; 84450; 84550; 85027; 86592; 86762; 86803; 86850; 86900; 86901; 87086; 87340; 87389; 87491; 87591; A9270-GY; J2590; J7120